=== PATIENT | male | born 1995 | race Two or more races ===

== ENCOUNTER 2017-02-25 12:02 | Emergency (ER) | payer OTHER ==
[~2017-02-25] VITALS: Ht 175.3 cm; Wt 64.9 kg
[2017-02-25 13:56] VITALS: BP 118/75
== END 2017-02-25 13:56 | disposition home or self-care (01) ==
LOC: ED 12:02
DX: B34.9 Viral infection, unspecified (principal)
CPT/HCPCS: J1885

== ENCOUNTER 2017-05-27 09:42 | Emergency (ER) | payer OTHER ==
[~2017-05-27] VITALS: Ht 172.7 cm; Wt 66.2 kg
[2017-05-27 09:47] VITALS: Ht 172.7 cm; Wt 66.2 kg
[2017-05-27 11:37] VITALS: BP 110/74
== END 2017-05-27 11:37 | disposition home or self-care (01) ==
LOC: ED 09:42
DX: S16.1XXA Strain of muscle, fascia and tendon at neck level, initial encounter (principal); X58.XXXA Exposure to other specified factors, initial encounter; Y93.89 Activity, other specified; Y92.89 Other specified places as the place of occurrence of the external cause; Y99.8 Other external cause status
CPT/HCPCS: J1885